=== PATIENT | male | born 1965 | race Caucasian/White ===

== ENCOUNTER 2024-02-14 09:13 | Outpatient (CLI) | payer OTHER, SELFPAY ==
--- NOTE | 2024-02-15 16:36 | WPDHOMESLEEP ---
Sleep Study - Home Unattended Date of Study: 02/14/24 Ordering Provider: Luis Alberto Palacios PA-C Interpreting Provider: Lora Hughes MD [place] Sleep Study Type: Watch PAT Height: 1.73 m Weight: 108.862 kg Body Mass Index: 36.5 Neck Circumference (inches): 17.5 [place]: 22 Reason for Sleep Study Hypersomnolence Sleep History Fabien Amador is a 58-year-old man with excessive daytime sleepiness. He occasionally awakens from sleep feeling short of breath. He frequently wakes at night with heartburn, belching or coughing.??He constantly snores, and constantly snores loudly enough that others complain. He never has trouble sleeping when he has a cold. He frequently wakes up gasping for breath during the night. He frequently has breathing problems at night. He rarely sweats excessively at night. He rarely notices his heart pounding or beating irregularly during the night. He constantly falls asleep during the day. He constantly falls asleep involuntarily, rarely falls asleep while driving. He never experiences loss of muscle tone with strong emotion. 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 He never feels paralyzed on waking or falling asleep. He never experiences vivid dreams upon waking or falling asleep. He never feels afraid of going to sleep. He never has nightmares. He occasionally recalls his dreams. He never has thoughts racing through his mind. He never feels sad or depressed. He occasionally feels anxiety related to his work. He frequently notices hand tremors. He occasionally kicks during the night. He occasionally feels crawling or aching feelings in his legs. He rarely feels leg pain at night. He never has morning jaw pain, never grinds his teeth at night. He occasionally feels bothered by pain during the day, never is awakened by pain during the night. He occasionally wakes up feeling stiff in the morning, and he occasionally wakes feeling sore or achy. He rarely awakens with pain in his neck, spine, or joints. He has gained 15 lb in the last year. He has seasonal allergies with episodes of bronchitis. There is a family history of sleep issues with his siblings also having similar complaints. Normal bedtime is 10:00 p.m., falling asleep within minutes, waking once at night to go to the bathroom. Wake time is 5:30 a.m.. He keeps the same schedule on weekends. He typically gets 8 hours of sleep per night. He takes no naps in the day. A short nap lasting 10-15 minutes is not refreshing. He feels better in the morning compared to other times of day. Habits:??Tobacco: never smoker Caffeine: 3 servings per day. Alcohol:none Recreational substances: none [facility] Past Medical History Medical History (Updated 02/15/24 @ 18:08 by Lora Hughes MD) Bunion Family History Family History Father Family history of malignant neoplasm Mother Family history of malignant neoplasm of breast in first degree relative Social History Social History Smoking status: Never smoker Second hand tobacco smoke exposure: No Alcohol intake: current Lack of Transportation: No Lack of Food: Never True Current Housing: I Have Housing Concerned About Future Housing: No Difficulty Paying Gas/Electric Bills: No Difficulty Paying for Meds: No Currently Unemployed: No Education: Associate Degree Difficulty w/ Childcare or Family Care: No Medications Home Medications Medication Instructions Recorded Confirmed Type No Home Medications 01/17/24 01/17/24 History Sleep Procedure The sleep study was completed using HuaatT a technically adequate device with seven channels: peripheral arterial tone, actigraphy, body position, snore, respiratory movement, pulse oximetry, sleep staging, and heart rate. Prior to using the device, grady
[2024-02-15 17:57] VITALS: BMI 36.5
== END 2024-02-15 07:00 | disposition home or self-care (01) ==
LOC: ANHCSM 09:18
PROVIDERS: PCP Internal Medicine; Visit Provider Physician Assistant
DX: G47.33 Obstructive sleep apnea (adult) (pediatric) (principal); G47.10 Hypersomnia, unspecified; Z68.36 Body mass index [BMI] 36.0-36.9, adult
CPT/HCPCS: 95800

== ENCOUNTER 2024-02-29 09:17 | Outpatient (CLI) | payer OTHER, SELFPAY ==
[2024-03-25 16:56] VITALS: BMI 36.5
--- NOTE | 2024-03-25 16:56 | WPDSLEEPSTUD ---
Sleep Study Date of Study: 02/29/24 Ordering Provider: Luis Alberto Palacios, [facility] Interpreting Physician: Karuna Francisco, Sleep Study Type: CPAP Titration Height: 1.73 m Weight: 108.862 kg Body Mass Index: 36.5 Neck Circumference (inches): 17.5 [place]: 22 Reason for Sleep Study The patient had a WatchPAT home sleep test on 02/14/2024 that showed an overall AHI of 78.7 with desaturation down to 65%. Sleep History Fabien Amador is a 58-year-old man with excessive daytime sleepiness. He occasionally awakens from sleep feeling short of breath. He frequently wakes at night with heartburn, belching or coughing.??He constantly snores, and constantly snores loudly enough that others complain. He never has trouble sleeping when he has a cold. He frequently wakes up gasping for breath during the night. He frequently has breathing problems at night. He rarely sweats excessively at night. He rarely notices his heart pounding or beating irregularly during the night. He constantly falls asleep during the day. He constantly falls asleep involuntarily, rarely falls asleep while driving. He never experiences loss of muscle tone with strong emotion. 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 He never feels paralyzed on waking or falling asleep. He never experiences vivid dreams upon waking or falling asleep. He never feels afraid of going to sleep. He never has nightmares. He occasionally recalls his dreams. He never has thoughts racing through his mind. He never feels sad or depressed. He occasionally feels anxiety related to his work. He frequently notices hand tremors. He occasionally kicks during the night. He occasionally feels crawling or aching feelings in his legs. He rarely feels leg pain at night. He never has morning jaw pain, never grinds his teeth at night. He occasionally feels bothered by pain during the day, never is awakened by pain during the night. He occasionally wakes up feeling stiff in the morning, and he occasionally wakes feeling sore or achy. He rarely awakens with pain in his neck, spine, or joints. He has gained 15 lb in the last year. He has seasonal allergies with episodes of bronchitis. There is a family history of sleep issues with his siblings also having similar complaints. Normal bedtime is 10:00 p.m., falling asleep within minutes, waking once at night to go to the bathroom. Wake time is 5:30 a.m.. He keeps the same schedule on weekends. He typically gets 8 hours of sleep per night. He takes no naps in the day. A short nap lasting 10-15 minutes is not refreshing. He feels better in the morning compared to other times of day. Habits:??Tobacco: never smoker Caffeine: 3 servings per day. Alcohol:none Recreational substances: none PMFSH Past Medical History Medical History Bunion Family History Family History Father Family history of malignant neoplasm Mother Family history of malignant neoplasm of breast in first degree relative Social History Social History Smoking status: Never smoker Second hand tobacco smoke exposure: No Alcohol intake: current Lack of Transportation: No Lack of Food: Never True Current Housing: I Have Housing Concerned About Future Housing: No Difficulty Paying Gas/Electric Bills: No Difficulty Paying for Meds: No Currently Unemployed: No Education: Associate Degree Difficulty w/ Childcare or Family Care: No Medications Home Medications Medication Instructions Recorded Confirmed Type No Home Medications 01/17/24 01/17/24 History Sleep Procedure A full night polysomnogram using the [employer] multi-channel system recorded the standard physiologic parameters including EEG, EOG, submentalis EM
== END 2024-03-01 07:32 | disposition home or self-care (01) ==
PROVIDERS: PCP Internal Medicine; Visit Provider Physician Assistant
DX: G47.33 Obstructive sleep apnea (adult) (pediatric) (principal)
CPT/HCPCS: 95811